=== PATIENT | female | born 1985 | race Caucasian/White ===

== ENCOUNTER 2016-12-28 19:31 | Emergency (ER) | payer BC, OTHER ==
[2016-12-28 19:35] VITALS: RESP 16; TEMP 98.2
--- NOTE | 2016-12-28 20:27 | ED ---
Female Urogenital HPI - General Chief complaint: Vaginal Bleeding Stated complaint: "few months " spotting Time Seen by Provider: 12/28/16 20:14 Source: patient, family, RN notes reviewed Mode of arrival: ambulatory Limitations: no limitations - History of Present Illness Initial comments: 31-year-old female presented emergency department for vaginal bleeding early . Patient states she is A0 and currently. Weeks . Patient states her ATMOSPHERIC SCIENTIST is Dr. St. She has an appointment coming up next week. Patient states that she started having some vaginal bleeding and spotting yesterday. She states usually when she goes the bathroom. She states it is bright red blood denies any clots. Patient denies any dysuria hematuria. Patient is not currently taking her vitamin. She did admit to having bleeding during her prior which is worse than this bleeding. She believes that she is O+ blood type. She has never received Procan. Denies any nausea vomiting - Related Data Home Medications Medication Instructions Recorded Confirmed No Known Home Medications [No 12/28/16 12/28/16 Known Home Medications] Allergies Allergy/AdvReac Type Severity Reaction Status Date / Time codeine Allergy Rash/Hives Verified 12/28/16 20:01 hydrocodone bitartrate Allergy Rash/Hives Verified 12/28/16 20:01 [From Vicodin] sulfamethoxazole Allergy Rash/Hives Verified 12/28/16 20:01 [From Bactrim] tramadol Allergy Rash/Hives Verified 12/28/16 20:01 trimethoprim [From Bactrim] Allergy Rash/Hives Verified 12/28/16 20:01 Review of Systems ROS Statement: Those systems with pertinent positive or pertinent negative responses have been documented in the HPI. ROS Other: All systems not noted in ROS Statement are negative. Past Medical History Past Medical History: No Reported History History of Any Multi-Drug Resistant Organisms: None Reported Past Surgical History: Appendectomy, Section Past Anesthesia/Blood Transfusion Reactions: Postoperative Nausea & Vomiting ( PONV) Past Psychological History: No Psychological Hx Reported Smoking Status: Current every day smoker Past Alcohol Use History: None Reported, Occasional Past Drug Use History: None Reported - Past Family History Mother Family Medical History: No Reported History General Exam Limitations: no limitations General appearance: alert, in no apparent distress Respiratory exam: Present: normal lung sounds bilaterally. Absent: respiratory distress, wheezes, rales, rhonchi, stridor Cardiovascular Exam: Present: regular rate, normal rhythm, normal heart sounds. Absent: systolic murmur, diastolic murmur, rubs, gallop, clicks GI/Abdominal exam: Present: soft, normal bowel sounds. Absent: distended, tenderness, guarding, rebound, rigid Back exam: Absent: CVA tenderness (R), CVA tenderness (L) Neurological exam: Present: alert, oriented X3, CN II-XII intact Skin exam: Present: warm, dry, intact, normal color. Absent: rash Course Vital Signs 12/28/16 12/28/16 19:33 22:02 Temperature 98.2 F 98.2 F Pulse Rate 73 61 Respiratory 16 16 Rate Blood Pressure 123/67 118/60 O2 Sat by Pulse 100 100 Oximetry Medical Decision Making - Medical Decision Making 31-year-old female presented for vaginal bleeding in early . Ultrasound does show viable IUP 6 weeks and 2 days with a heart rate 121. Heart rate is concerning as it is a lower heart rate. Patient will follow-up with her ATMOSPHERIC SCIENTIST next week. Patient advised to refrain from any physical activity that it's strenuous and advised not to have any sexual intercourse. - Lab Data Lab Results 12/28/16 12/28/16 12/28/16 Range/Units 20:40 20:40 20:40 HCG, Quant 5016.7 mIU/mL Urine Color Light Yellow Urine Appearance Clear (Clear) Urine pH 6.5 (5.0-8.0) Ur Specific [place] 1.008 (1.001-1.035) Urine Protein Negative (Negative) Urine Glucose (UA) Negative (Negative) Urine Ketones Negative (Negative) Urine Blood Moderate H (Negative) Urine Nitrite Negative (Negative) Urine Bilirubin Negative (Negative) Urine Urobilinogen <2.0 (<2.0) mg/dL Ur Leukocyte Esterase Negative (Negative) Urine RBC 5 (0-5) /hpf Urine WBC 1 (0-5) /hpf Blood Type O Positive Blood Type Recheck No Disposition Clinical Impression: Vaginal bleeding in , Threatened miscarriage Disposition: HOME SELF-CARE Condition: Stable Instructions: Threatened Miscarriage (ED) Additional Instructions: Please return to the Emergency Department if symptoms worsen or any other concerns. Referrals: None,Stated [Primary Care Provider] - 1-2 days Time of Disposition: 22:16
[2016-12-28 20:53] LABS: Appearance,Urine Clear (Clear); Bilirubin,Urine Negative (Negative); Glucose,Urine (UA) Negative (Negative); Ketones,Urine Negative (Negative); Leukocyte Esterase,Urine Negative (Negative); Nitrite,Urine Negative (Negative); PH, Urine 6.5 (5.0-8.0); Particle Count 1150; Protein,Urine Negative (Negative); RBC,Urine 5 /hpf (0-5); Specific Gravity,Urine 1.008 (1.001-1.035); UA Billing (MACRO vs. MICRO) MICRO; Urobilinogen,Urine <2.0 mg/dL (<2.0); WBC,Urine 1 /hpf (0-5)
--- NOTE | 2016-12-28 22:01 | US ---
EXAMINATION TYPE: US OB <=14 wks transvag DATE OF EXAM: 12/28/2016 COMPARISON: NONE CLINICAL HISTORY: Spotting. EXAM PERFORMED: Transabdominal (TA) EXAM MEASUREMENTS: GESTATIONAL AGE / DATING Physician Established: not yet established Dates by LMP: unknown Dates by First Scan: 1st scan today Dates by Current Scan for: (6 weeks/2 days) EDC: 08/21/16 MATERNAL ANATOMY Uterus: 7.0 x 3.4 x 5.1cm Right Ovary: 2.9 x 1.9 x 2.3cm Left Ovary: 2.5 x 1.7 x 1.7cm Post CDS / Adnexa: wnl Presence of free fluid: no Presence of subchorionic bleed: no GESTATION / SURVEY CRL: 0.5 (6 weeks/2 days) Yolk Sac (normal less than 6mm): 2mm Heart Rate: 121 bpm Rhythm: Normal IUP: Viable IUP Date of LMP: unknown Beta HcG (if available): not available Viable IUP dates above. IMPRESSION: The ultrasound gestational age is 6 weeks 2 days. I see no complicating process. The DIAMANTE is 08/21/2017 .
[2016-12-28 22:03] VITALS: BP 118/60; PULSE 61
== END 2016-12-28 22:24 | disposition home or self-care (01) ==
LOC: EC 19:31
DX: O20.0 Threatened abortion (principal); O99.331 Smoking (tobacco) complicating pregnancy, first trimester; F17.200 Nicotine dependence, unspecified, uncomplicated; Z3A.01 Less than 8 weeks gestation of pregnancy; Z88.5 Allergy status to narcotic agent; Z88.2 Allergy status to sulfonamides; Z88.6 Allergy status to analgesic agent
CPT/HCPCS: 36415; 76801; 76817; 81001; 84702; 86900; 86901; 99284

== ENCOUNTER 2016-12-31 19:56 | Emergency (ER) | payer BC, OTHER ==
[2016-12-31 20:10] VITALS: RESP 18
--- NOTE | 2016-12-31 20:48 | ED ---
Female Urogenital HPI - General Chief complaint: Vaginal Bleeding Stated complaint: 6 weeks / cramping/bleeding Time Seen by Provider: 12/31/16 20:35 Source: patient, RN notes reviewed Mode of arrival: wheelchair Limitations: no limitations - History of Present Illness Initial comments: This a 31-year-old female presents emergency Department chief complaint vaginal bleeding. Patient states that she was seen here 3 days ago and had a confirmed IUP 6 weeks and 2 days. Patient states bleeding but states it's got worse today this afternoon. She states that she did not do anything differently. She states she is passing some clots called her on-call OB group and states that they advised her to come in. Patient states she does have some mild cramping. Patient denies any fever, chills, nausea, vomiting, dysuria hematuria. Patient is A0. Patient states she did have large amount of bleeding with her prior . Last Menstrual Period: 11/19/16 - Related Data Home Medications Medication Instructions Recorded Confirmed Ywb-Whjx-Wmlqd Acid 1 cap PO HS 12/31/16 12/31/16 [-U Capsule (formulary)] Allergies Allergy/AdvReac Type Severity Reaction Status Date / Time sulfamethoxazole Allergy Rash/Hives Verified 12/31/16 20:11 [From Bactrim] trimethoprim [From Bactrim] Allergy Rash/Hives Verified 12/31/16 20:11 codeine AdvReac Rapid Verified 12/31/16 20:51 Heart Rate hydrocodone bitartrate AdvReac Rapid Verified 12/31/16 20:51 [From Vicodin] Heart Rate tramadol AdvReac Vertigo Verified 12/31/16 20:51 Review of Systems ROS Statement: Those systems with pertinent positive or pertinent negative responses have been documented in the HPI. ROS Other: All systems not noted in ROS Statement are negative. Past Medical History Past Medical History: No Reported History History of Any Multi-Drug Resistant Organisms: None Reported Past Surgical History: Appendectomy, Section Past Anesthesia/Blood Transfusion Reactions: Postoperative Nausea & Vomiting ( PONV) Past Psychological History: No Psychological Hx Reported Smoking Status: Current every day smoker Past Alcohol Use History: None Reported Past Drug Use History: None Reported - Past Family History Mother Family Medical History: No Reported History General Exam Limitations: no limitations General appearance: alert, in no apparent distress Neck exam: Present: normal inspection. Absent: tenderness, meningismus, lymphadenopathy Respiratory exam: Present: normal lung sounds bilaterally. Absent: respiratory distress, wheezes, rales, rhonchi, stridor Cardiovascular Exam: Present: regular rate, normal rhythm, normal heart sounds. Absent: systolic murmur, diastolic murmur, rubs, gallop, clicks GI/Abdominal exam: Present: soft, tenderness (mild suprapubic), normal bowel sounds. Absent: distended, guarding, rebound, rigid Back exam: Absent: CVA tenderness (R), CVA tenderness (L) Skin exam: Present: warm, dry, intact, normal color. Absent: rash Course Vital Signs 12/31/16 20:08 Temperature 98.1 F Pulse Rate 94 Respiratory 18 Rate Blood Pressure 122/71 O2 Sat by Pulse 99 Oximetry Medical Decision Making - Medical Decision Making 31-year-old female presented emergency department for vaginal bleeding early . Patient HCG went up from 5000 - 5500. Patient continues to have bleeding. Patient does not require broke him. Patient already an ultrasound 3 days ago confirmed IUP. Patient follow-up with OB tomorrow at her scheduled appointment. - Lab Data Result diagrams: 12/31/16 20:48 Lab Results 12/31/16 12/31/16 Range/Units 20:48 20:48 WBC 7.1 (3.8-10.6) k/uL RBC 3.95 (3.80-5.40) m/uL Hgb 12.3 (11.4-16.0) gm/dL Hct 35.7 (34.0-46.0) % MCV 90.5 (80.0-100.0) fL MCH 31.1 (25.0-35.0) pg MCHC 34.4 (31.0-37.0) g/dL RDW 13.9 (11.5-15.5) % Plt Count 224 (150-450) k/uL Neutrophils % 51 % Lymphocytes % 35 % Monocytes % 8 % Eosinophils % 3 % Basophils % 1 % Neutrophils # 3.6 (1.3-7.7) k/uL Lymphocytes # 2.5 (1.0-4.8) k/uL Monocytes # 0.6 (0-1.0) k/uL Eosinophils # 0.2 (0-0.7) k/uL Basophils # 0.1 (0-0.2) k/uL HCG, Quant 5515.4 mIU/mL Disposition Clinical Impression: Threatened miscarriage Disposition: HOME SELF-CARE Condition: Stable Instructions: Threatened Miscarriage (ED) Additional Instructions: Please return to the Emergency Department if symptoms worsen or any other concerns. Referrals: None,Stated [Primary Care Provider] - 1-2 days Time of Disposition: 21:49
[2016-12-31 21:11] LABS: Basophils # (A) 0.1 k/uL (0-0.2); Basophils % (A) 1 %; CH 31.2; CHCM 34.6; Eosinophils # (A) 0.2 k/uL (0-0.7); Eosinophils % (A) 3 %; HCT 35.7 % (34.0-46.0); HDW 2.27; HGB 12.3 gm/dL (11.4-16.0); Luc # (Auto) 0.15; Luc % (Auto) 2; Lymphocytes # (A) 2.5 k/uL (1.0-4.8); Lymphocytes % (A) 35 %; MCH 31.1 pg (25.0-35.0); MCHC 34.4 g/dL (31.0-37.0); MCV 90.5 fL (80.0-100.0); Mean Platelet Volume 7.4; Monocytes # (A) 0.6 k/uL (0-1.0); Monocytes % (A) 8 %; Neutrophils # (A) 3.6 k/uL (1.3-7.7); Neutrophils % (A) 51 %; RBC 3.95 m/uL (3.80-5.40); RDW 13.9 % (11.5-15.5); WBC 7.1 k/uL (3.8-10.6); WBC (Perox) 7.21
[2016-12-31 22:05] VITALS: BP 143/78; PULSE 71; TEMP 97.6
== END 2016-12-31 22:04 | disposition home or self-care (01) ==
LOC: EC 19:56
DX: O20.0 Threatened abortion (principal); O99.331 Smoking (tobacco) complicating pregnancy, first trimester; F17.200 Nicotine dependence, unspecified, uncomplicated; Z90.49 Acquired absence of other specified parts of digestive tract; Z88.2 Allergy status to sulfonamides; Z88.5 Allergy status to narcotic agent; Z88.6 Allergy status to analgesic agent; Z98.890 Other specified postprocedural states; Z3A.01 Less than 8 weeks gestation of pregnancy; Z79.899 Other long term (current) drug therapy
CPT/HCPCS: 36415; 84702; 85025; 99284

== ENCOUNTER 2017-01-01 16:00 | Day surgery (SDC) | payer BC, OTHER ==
[~2017-01-01 16:00] MED LIST: Pre Op ABX Message 1 EACH MISC MISCELLANE ONE
--- NOTE | 2017-01-01 16:00 | P.HPOB ---
History of Present Illness H&P Date: 01/01/17 Chief Complaint: Incomplete . This patient is a pleasant 31 yr female estimated gestational age 6 weeks who presented to the ER with complaints of bleeding and . She was found to have a viable 6 week , but began bleeding heavy last evening. Repeat ultrasound here demonstrates a non-viable , no longer a pole, but with retained tissue. Patient is currently bleeding and presents for D&C for treatment. Review of Systems Constitutional: Denies chills, Denies fever Cardiovascular: Denies chest pain, Denies shortness of breath Respiratory: Denies cough Gastrointestinal: Denies abdominal pain, Denies diarrhea, Denies nausea, Denies vomiting Genitourinary: Reports Menstruation: Reports as per HPI Musculoskeletal: Denies myalgias Past Medical History Past Medical History: No Reported History History of Any Multi-Drug Resistant Organisms: None Reported Past Surgical History: Appendectomy, Section Past Anesthesia/Blood Transfusion Reactions: Postoperative Nausea & Vomiting ( PONV) Past Psychological History: No Psychological Hx Reported Smoking Status: Current every day smoker Past Alcohol Use History: None Reported Past Drug Use History: None Reported - Past Family History Mother Family Medical History: No Reported History Medications and Allergies Home Medications Medication Instructions Recorded Confirmed Type Rtj-Eznl-Daacn Acid 1 cap PO HS 12/31/16 12/31/16 History [-U Capsule (formulary)] Allergies Allergy/AdvReac Type Severity Reaction Status Date / Time sulfamethoxazole Allergy Rash/Hives Verified 12/31/16 20:11 [From Bactrim] trimethoprim [From Bactrim] Allergy Rash/Hives Verified 12/31/16 20:11 codeine AdvReac Rapid Verified 12/31/16 20:51 Heart Rate hydrocodone bitartrate AdvReac Rapid Verified 12/31/16 20:51 [From Vicodin] Heart Rate tramadol AdvReac Vertigo Verified 12/31/16 20:51 Exam - OBG Physical Exam Abdomen: bowel sounds normal, no diffuse tenderness, no bruit present, no guarding noted, no hepatomegaly, no splenomegaly, no mass Vulva: both: normal Vagina: no discharge (Bleeding) Cervix: no lesion (Dilated finger tip.), no discharge Results Ultrasound as above. Blood type is RH positive. Assessment and Plan (1) Incomplete Narrative/Plan: This is a pleasant 31 yr female 6 weeks gestation with incomplete presenting for suction D&C. I discussed this surgery and risks with the patient including the risks of infection, bleeding, possible uterine perforation. All of the patients questions were answered and a written consent obtained. Status: Acute
[2017-01-01] MEDS ORDERED: DEXAMETHASONE SOD PHOSPHATE 10 MG/ML 1 ML VIAL IV ONE (16:16)
[2017-01-01] MEDS ORDERED: ONDANSETRON 4 MG/2 ML VIAL IVP ONE (16:16)
[2017-01-01] MEDS ORDERED: HYDROmorphone 1 MG/ML 1 ML SYRINGE IVP PRN (16:16)
[2017-01-01] MEDS ORDERED: LACTATED RINGERS 1,000 ML IV SCH (16:30)
[2017-01-01] MEDS ORDERED: LIDOCAINE 1% 20 ML VIAL (10MG/ML) FOR IV START INTRADERMA ONE (16:40)
[2017-01-01] MEDS ORDERED: KETOROLAC 30 MG/ML 1 ML VIAL ONE (16:50)
[2017-01-01] MEDS ORDERED: PROPOFOL 10 MG/ML 20 ML VIAL IV ONE (16:50)
[2017-01-01] MEDS ORDERED: fentaNYL (PF) 50 MCG/ML 2 ML AMP ONE (16:50)
[2017-01-01] MEDS ORDERED: LIDOCAINE 1% INJ 10MG/ML (20 ML MDV) ONE (16:50)
[2017-01-01] MEDS ORDERED: LACTATED RINGERS 1,000 ML IV ONE ×2 (16:50→17:44)
[2017-01-01] MEDS ORDERED: MIDAZOLAM 2 MG/2 ML VIAL ONE (16:50)
--- NOTE | 2017-01-01 17:17 | P.OP ---
Date of Procedure: 01/01/17 Preoperative Diagnosis: Incomplete Postoperative Diagnosis: Same Procedure(s) Performed: Suction D&C Implants: Anesthesia: MAC Surgeon: Kobe St Estimated Blood Loss (ml): 25 Urine output (ml): 10 Pathology: other Condition: stable Disposition: PACU (Uterine contents) Indications for Procedure: Please see dictated H&P for intimate details of this patient's admission. Brief summary this is a pleasant 31-year-old 2 para 1 female estimated gestational age 6 weeks who presents to my office today with complaints of bleeding. Patient was found to have an incomplete and now presents for suction D&C for treatment. Patient does understand the surgery and risks including risks of infection, bleeding, possible uterine perforation. All the patient's questions are answered written consent is obtained. Operative Findings: Uterine contents were consistent with degenerated products of conception. Description of Procedure: This patient is taken to the operating room where she is laid in the supine position. She subsequently undergoes general mask anesthesia without incident. With adequate level of anesthesia she's placed in dorsal lithotomy position. She has a vaginal perineal prep and drape. Examination under anesthesia shows a mid position uterus slightly enlarged. I drain her bladder for 10 mL of clear urine. Weighted speculum was placed in the posterior vagina and the anterior lip of the cervix is grasped with an Allis clamp. The cervix is easily dilated to allow a 9 curved suction curette into the uterine cavity. Suction is applied and a generous amount of tissue is removed.'s does appear to be degenerated tissue. Multiple passes are made to no further tissue was noted. A gentle but thorough 4 quadrant curettage is then done and again no further tissue was noted. A final pass of the suction curet is done. There is minimal bleeding. This point the weighted speculum and Allis clamp are removed. All counts are correct 3. There are no complications. Patient was taken to the recovery room in satisfactory condition.
[2017-01-01 17:22] VITALS: TEMP 97.1
[2017-01-01 18:03] VITALS: RESP 18
[2017-01-01 18:51] VITALS: BP 115/66; PULSE 71
== END 2017-01-01 18:47 | disposition home or self-care (01) ==
LOC: OR 16:00
PROVIDERS: ATTEND Obstetrics & Gynecology
DX: O03.4 Incomplete spontaneous abortion without complication (principal); F17.200 Nicotine dependence, unspecified, uncomplicated; Z88.5 Allergy status to narcotic agent; Z88.2 Allergy status to sulfonamides; Z88.8 Allergy status to other drugs, medicaments and biological substances
CPT/HCPCS: 88305; 59812; J2250; J1100; J2405; J2001; J3010; J1885; J2704

== ENCOUNTER → 2018-01-22 | Outpatient (CLI) | payer OTHER ==
[2018-01-22 15:08] LABS: MCH 30.1 pg (25.0-35.0); MCHC 33.4 g/dL (31.0-37.0); MCV 90.2 fL (80.0-100.0); Mean Platelet Volume 7.4; Platelet Count 214 k/uL (150-450); RBC 3.66 m/uL (3.80-5.40); RDW 13.9 % (11.5-15.5); WBC 7.6 k/uL (3.8-10.6)
[2018-01-22 15:29] LABS: Glucose 101 mg/dL (74-99)
--- NOTE | 2018-01-22 15:54 | US ---
EXAMINATION TYPE: Transabdominal DATE OF EXAM: 09/24/17 COMPARISON: NONE CLINICAL HISTORY: Z36 CONFIRM DATES. Previous miscarriage in the beginning of December, LMP unknown EXAM PERFORMED: Transvaginal (TV) and Transabdominal (TA) EXAM MEASUREMENTS: GESTATIONAL AGE / DATING Physician Established: Not yet established Dates by LMP: LMP unknown Dates by First Scan: No previous this is first scan Dates by Current Scan for: (7 weeks/2 days) EDC: 09/08/2018 MATERNAL ANATOMY Uterus: 6.7 x 4.7 x 6.2 cm Right Ovary: 3.0 x 1.1 x 2.0 cm Left Ovary: 2.8 x 2.8 x 3.1 cm Post CDS / Adnexa: wnl Presence of free fluid: No Presence of corpus luteal cyst: Yes, left ovary measuring 2.2 x 2.3 x 1.8 cm Presence of subchorionic bleed: Yes, to the left of the gestational sac GESTATION / SURVEY CRL: 1.12 cm (7 weeks/2 days) Yolk Sac (normal less than 6mm): 3 mm Heart Rate: 152 bpm Rhythm: Normal IUP: Viable IUP Date of LMP: Unsure Viable IUP with an DIAMANTE of 09/08/2018 by this exam . IMPRESSION: Single live intrauterine with a sonographic age of 7 weeks and 2 days with estimated date o f delivery of 09/08/2018. Small subchorionic hemorrhage is noted for which surveillance can be perform ed.
[2018-01-22 19:05] LABS: HIV AB P24 Non-Reactive (Non-Reactive); HIV P24 AG Non-Reactive (Non-Reactive)
[2018-01-23 07:02] LABS: Toxoplasma Antibody (IgG) <3.0 IU/mL (<7.2); Toxoplasma Antibody (IgM) <3.0 AU/mL (<8.0)
== END | disposition home or self-care (01) ==
LOC: RADUSWWP 14:08
PROVIDERS: ATTEND Obstetrics & Gynecology
DX: O20.8 Other hemorrhage in early pregnancy (principal); O26.811 Pregnancy related exhaustion and fatigue, first trimester; Z3A.01 Less than 8 weeks gestation of pregnancy
CPT/HCPCS: 36415; 76801; 76817; 82565; 82947; 85027; 86762; 86777; 86778; 86780; 86850; 86900; 86901; 87340; 87390

== ENCOUNTER → 2018-05-28 | Outpatient (CLI) | payer OTHER | END | disposition home or self-care (01) | LOC: LABWHC1 07:59 | PROVIDERS: ATTEND Obstetrics & Gynecology | DX: Z34.82 Encounter for supervision of other normal pregnancy, second trimester (principal); Z3A.00 Weeks of gestation of pregnancy not specified | CPT/HCPCS: 36415; 82950 ==

== ENCOUNTER → 2018-06-03 | Outpatient (CLI) | payer OTHER ==
[2018-06-03 12:17] LABS: Glucose 3 Hour, Gest 123 mg/dL
== END | disposition home or self-care (01) ==
LOC: LABWHC1 07:59
PROVIDERS: ATTEND Obstetrics & Gynecology
DX: O24.419 Gestational diabetes mellitus in pregnancy, unspecified control (principal); Z3A.00 Weeks of gestation of pregnancy not specified
CPT/HCPCS: 36415; 82951; 82952

== ENCOUNTER → 2018-06-27 | Outpatient (CLI) | payer OTHER | END | disposition home or self-care (01) | LOC: LABWHC1 10:24 | PROVIDERS: ATTEND Obstetrics & Gynecology Maternal & Fetal Medicine | DX: O24.410 Gestational diabetes mellitus in pregnancy, diet controlled (principal) | CPT/HCPCS: 36415; 82947; 83036 ==

== ENCOUNTER 2018-08-06 18:34 | Outpatient (CLI) | payer OTHER ==
[2018-08-06 19:20] VITALS: BP 130/69; PULSE 80; RESP 16; TEMP 97.2
[2018-08-06] MEDS ORDERED: LACTATED RINGERS 1,000 ML IV ONE (19:45)
--- NOTE | 2018-08-17 12:40 | P.MSEPDOC ---
Presenting Problems - Arrival Data Date of Arrival on Unit: 08/06/18 Time of Arrival on Unit: 18:36 Mode of Transport: Wheelchair - Complaint OB-Reason for Admission/Chief Complaint: Possible Onset of Labor Comment: cayden HANKS ever 5 min since 1630 Medical History - Information : 3 Para: 1 Term: 1 : 0 Abortions: Spontaneous or Elective: 1 Number of Living Children: 1 - Gestational Age Gestational Age by DIAMANTE (wks/days): 35 Weeks and 5 Days - History Complications: GDM, Prior Review of Systems - Review of Systems Constitutional: No problems Breast: No problems ENT: No problems Cardiovascular: No problems Respiratory: No problems Gastrointestinal: No problems Genitourinary: No problems Musculoskeletal: No problems Neurological: No problems Skin: No problems Vital Signs - Temperature Temperature: 97.2 F Temperature Source: Temporal Artery Scan - Pulse Right Brachial Pulse Rate: 80 Pulse Assessment Method: Automatic Cuff - Respirations Respiratory Rate: 16 Oxygen Delivery Method: Room Air O2 Sat by Pulse Oximetry: 99 - Blood Pressure Right Arm Sitting Blood Pressure: 130/69 Blood Pressure Mean: 89 Blood Pressure Source: Automatic Cuff Medical Screen Scoring (Pre) - Cervical Exam Dilation: 0 cm = 0 Membranes: Intact - Uterine Contractions Frequency: Scheduled / = 6 Duration: > 40 seconds = 2 - Maternal Vital Signs Maternal Temperature: N/A Maternal Blood Pressure: N/A Signs of Preeclampsia: N/A Maternal Respirations: N/A - Pain Assessment Pain Location and Character: Lower, Abdomen Pain Scale Used: Numeric (1 - 10) Pain Intensity: 8 Pain Description: *Acute, Tightness Pain Radiation Location: pelvis Pain Frequency: Intermittent Pain Duration: 2 Pain Duration Units: Hours Pain Behavior: Facial Grimacing Pain Aggravating Factors: Contractions - Maternal Trauma Maternal Trauma: N/A - Assessment Baseline FHR: 125 Heart Rate - NICHD Category: Category I (Normal) = 0 NST: Reactive Position: N/A Station: N/A - Total Score Total Score (Pre): 8 - Level of Risk Level of Risk: Medium (6-9) Medical Screen Scoring (Post) - Uterine Contractions Frequency: < 36 weeks = 6 Duration: > 40 seconds = 2 Intensity: N/A - Maternal Vital Signs Maternal Temperature: N/A Maternal Blood Pressure: N/A Signs of Preeclampsia: N/A Maternal Respirations: N/A - Pain Assessment Pain Location and Character: Lower, Abdomen Pain Scale Used: Numeric (1 - 10) Pain Intensity: 6 Pain Description: *Acute, Cramping Pain Frequency: Intermittent Pain Duration Units: Minutes Pain Behavior: Facial Grimacing Pain Aggravating Factors: Contractions - Assessment Heart Rate: 135 Heart Rate - NICHD Category: Category I (Normal) = 0 NST: Reactive Position: N/A Station: N/A - Total Score Total Score (Post): 8 - Post Treatment Level of Risk Post Treatment Level of Risk: Medium (6-9) Physician Notification (Post) - Physician Notified Physician Notified Date: 08/06/18 Physician Notified Time: 20:22 Physician/Practitioner Notified:: Dr. Rodriguez Spoke With: Dr. Rodriguez New Order Received: Yes - Notification Comment Comment: Dr. Rodriguez called and given report on pt in tr. No change in vag exam. contractions 2-6 minutes. Orders recieved that if pt wishes to be monitoring another few. hours she can stay or pt may be d/c to home. Disposition - Disposition OB Disposition: Discharge to home Discharge Date: 08/06/18 Discharge Time: 20:45 I agree with the RN Medical Screening Exam: Yes Risk & Benefit of care provided described in d/c instruction: Yes Diagnosis: FALSE LABOR BEFORE 37 COMPLETED WEEKS OF GEST, THIRD TRI
== END 2018-08-06 20:45 | disposition home or self-care (01) ==
LOC: FBPOP 18:34
PROVIDERS: ATTEND Obstetrics & Gynecology
DX: O47.03 False labor before 37 completed weeks of gestation, third trimester (principal); Z3A.35 35 weeks gestation of pregnancy
CPT/HCPCS: 59025; 96360; G0463; 99214

== ENCOUNTER 2018-08-30 10:44 | Outpatient (CLI) | payer OTHER ==
--- NOTE | 2018-09-30 10:29 | P.MSEPDOC ---
Presenting Problems - Arrival Data Date of Arrival on Unit: 08/30/18 Time of Arrival on Unit: 10:44 Mode of Transport: Wheelchair - Complaint OB-Reason for Admission/Chief Complaint: NST Medical History - Information : 3 Para: 2 Term: 2 : 0 Abortions: Spontaneous or Elective: 0 Number of Living Children: 2 - Gestational Age Gestational Age by DIAMANTE (wks/days): 39 Weeks and 1 Days - History Complications: GDM Review of Systems - Review of Systems Constitutional: No problems Breast: No problems ENT: No problems Cardiovascular: No problems Respiratory: No problems Gastrointestinal: No problems Genitourinary: No problems Musculoskeletal: No problems Neurological: No problems Skin: No problems Medical Screen Scoring (Pre) - Cervical Exam Dilation: Exam Deferred Effacement: Exam Deferred - Uterine Contractions Frequency: > 5 minutes apart = 1 Duration: N/A Intensity: N/A - Maternal Vital Signs Maternal Temperature: N/A Maternal Blood Pressure: N/A Signs of Preeclampsia: N/A Maternal Respirations: N/A - Maternal Trauma Maternal Trauma: N/A - Assessment Baseline FHR: 145 Heart Rate - NICHD Category: Category I (Normal) = 0 - Total Score Total Score (Pre): 1 - Level of Risk Level of Risk: Low (0-5) Medical Screen Scoring (Post) - Cervical Exam Dilation: Exam Deferred Effacement: Exam Deferred - Uterine Contractions Frequency: > 5 minutes apart = 1 Duration: N/A Intensity: N/A - Maternal Vital Signs Maternal Temperature: N/A Maternal Blood Pressure: N/A Signs of Preeclampsia: N/A Maternal Respirations: N/A - Pain Assessment Pain Scale Used: Numeric (1 - 10) Pain Intensity: 0 - Maternal Trauma Maternal Trauma: N/A - Assessment Heart Rate: 145 Heart Rate - NICHD Category: Category I (Normal) = 0 NST: Reactive Position: N/A Station: N/A - Total Score Total Score (Post): 1 - Post Treatment Level of Risk Post Treatment Level of Risk: N/A Physician Notification (Post) - Physician Notified Physician Notified Date: 08/30/18 Physician Notified Time: 11:10 Physician/Practitioner Notified:: mi Spoke With: mi New Order Received: Yes - Notification Comment Comment: reported pt visit for nst, reported reactive. pt may be discharged Disposition - Disposition OB Disposition: Discharge to home Discharge Date: 08/30/18 Discharge Time: 11:25 I agree with the RN Medical Screening Exam: Yes Risk & Benefit of care provided described in d/c instruction: Yes Diagnosis: RELATED CONDITIONS, UNSPECIFIED, THIRD TRIMESTER
== END 2018-08-30 11:19 | disposition home or self-care (01) ==
LOC: FBPOP 10:44
PROVIDERS: ATTEND Obstetrics & Gynecology
DX: O26.93 Pregnancy related conditions, unspecified, third trimester (principal); Z3A.39 39 weeks gestation of pregnancy
CPT/HCPCS: 59025; G0463; 99213

== ENCOUNTER 2018-09-02 05:42 | Inpatient (IN) | payer OTHER ==
[2018-09-01 14:10] VITALS: BMI 30.4
--- NOTE | 2018-09-01 18:29 | P.HPOB ---
History of Present Illness H&P Date: 09/01/18 Chief Complaint: Gestational diabetes, repeat and tubal ligation This patient is a pleasant 32-year-old 3 para 1 female estimated date of confinement 09/05/2018 estimated gestational age 39-4/7 weeks who presents to labor and delivery for repeat section and tubal ligation. Patient's care has been complicated by insulin-dependent gestational diabetes has been managed by maternal medicine. She did have some control issues earlier but has most recently get her sugars under better control. otherwise has been uncomplicated, with the exception of tobacco use. Patient had a previous section for breech and as requested repeat section at this time. She is also requesting permanent sterilization. Review of Systems Gastrointestinal: Reports heartburn Genitourinary: Reports Menstruation: Reports amenorrhea Past Medical History Past Medical History: No Reported History Additional Past Medical History / Comment(s): gestational diabetes History of Any Multi-Drug Resistant Organisms: None Reported Past Surgical History: Appendectomy, Section Additional Past Surgical History / Comment(s): D&C Past Anesthesia/Blood Transfusion Reactions: Motion Sickness, Postoperative Nausea & Vomiting (PONV) Additional Past Anesthesia/Blood Transfusion Reaction / Comment(s): no hx blood transfusion Past Psychological History: No Psychological Hx Reported Smoking Status: Light tobacco smoker - Past Family History Mother Family Medical History: No Reported History Medications and Allergies Home Medications Medication Instructions Recorded Confirmed Type Mad-Ocel-Uxdtg Acid 1 cap PO HS 12/31/16 09/01/18 History [-U Capsule (formulary)] Insulin Glargine,Hum.rec.anlog 25 unit SQ HS 09/01/18 09/01/18 History [Basaglar Kwikpen U-100] Insulin Lispro [Admelog] 5 unit SQ AC-LUNCH 09/01/18 09/01/18 History Insulin Lispro [Admelog] 12 unit SQ AC-BRKFST 09/01/18 09/01/18 History Insulin Lispro [Admelog] 12 unit SQ AC-SUPPER 09/01/18 09/01/18 History Allergies Allergy/AdvReac Type Severity Reaction Status Date / Time sulfamethoxazole Allergy Rash/Hives Verified 09/01/18 14:01 [From Bactrim] trimethoprim [From Bactrim] Allergy Rash/Hives Verified 09/01/18 14:01 codeine AdvReac Rapid Verified 09/01/18 14:01 Heart Rate hydrocodone bitartrate AdvReac Rapid Verified 09/01/18 14:01 [From Vicodin] Heart Rate tramadol AdvReac Vertigo Verified 09/01/18 14:01 Exam Intake and Output 09/01/18 09/01/18 09/01/18 06:59 14:59 22:59 Other: Weight 81.647 kg - OBG Physical Exam Abdomen: bowel sounds normal, no diffuse tenderness, no bruit present, no guarding noted, no hepatomegaly, no splenomegaly, no mass Vulva: both: normal Vagina: normal moisture, no discharge Cervix: no lesion (Cervix in the office is closed.), no discharge Uterus: enlarged (Fundal height is 39 cm) Results blood work shows she is O positive, rubella immune, RPR nonreactive, hepatitis B negative, HIV is nonreactive, Glucola was 170 with 3 abnormal 3 hour values, ultrasounds have shown normal growth, group B strep was negative, Assessment and Plan Assessment: This is a pleasant 32-year-old 3 para 1 female 39-4/7 weeks gestation who is admitted to labor and delivery for elective repeat section and also requesting permanent sterilization. Patient also has insulin controlled gestational diabetes. Plan is repeat low transverse section and bilateral partial salpingectomy. Patient I discussed the surgery and risks. Patient understands a tubal ligation is considered permanent, however there is a failure rate of approximately 5 or less per thousand procedures done. Patient also understands that surgery itself has risks including risks of infection, bleeding, possible injury bowel, bladder, vessels, and/or other organs. She understands risk of DVT and pulmonary embolism. All the patient's questions are answered and a written consent is obtained. (1) 39 weeks gestation of Status: Acute Code(s): Z3A.39 - 39 WEEKS GESTATION OF SNOMED Code(s): 79207741 (2) Previous delivery affecting Status: Acute Code(s): O34.219 - MATERNAL CARE FOR UNSP TYPE SCAR FROM PREVIOUS DEL SNOMED Code(s): 718382734 (3) Family planning Status: Acute Code(s): Z30.09 - ENCOUNTER FOR OTH GENERAL CNSL AND ADVICE ON CONTRACEPTION SNOMED Code(s): 468535287 (4) Gestational diabetes mellitus (GDM) requiring insulin Status: Acute Code(s): O24.414 - GESTATIONAL DIABETES IN , INSULIN CONTROLLED SNOMED Code(s): 89893639
[2018-09-02] MEDS ORDERED: CITRIC ACID-SODIUM CITRATE 15 ML CUP PO ONE (06:02)
[2018-09-02] MEDS ORDERED: LACTATED RINGERS 1,000 ML IV ONE (06:02)
[2018-09-02] MEDS ORDERED: LACTATED RINGERS 1,000 ML IV SCH (06:02)
[2018-09-02 06:18] LABS: Glucose,Whole Blood 94 mg/dL (75-99)
[2018-09-02 06:23] LABS: Basophils % (A) 0 %; Eosinophils # (A) 0.1 k/uL (0-0.7); Eosinophils % (A) 2 %; HCT 29.1 % (34.0-46.0); HGB 9.7 gm/dL (11.4-16.0); Hypochromasia Moderate; Lymphocytes # (A) 1.5 k/uL (1.0-4.8); Lymphocytes % (A) 23 %; MCH 27.4 pg (25.0-35.0); MCHC 33.2 g/dL (31.0-37.0); MCV 82.4 fL (80.0-100.0); Mean Platelet Volume 7.4; Monocytes # (A) 0.6 k/uL (0-1.0); Monocytes % (A) 9 %; Neutrophils # (A) 4.1 k/uL (1.3-7.7); Neutrophils % (A) 63 %; Platelet Count 235 k/uL (150-450); Poikilocytosis Slight; RBC 3.53 m/uL (3.80-5.40); RDW 15.2 % (11.5-15.5); WBC 6.6 k/uL (3.8-10.6)
[2018-09-02] MEDS ORDERED: ceFAZolin IN SWFI 2 GM/20 ML SYRINGE IVP ONE (07:15)
[2018-09-02] MEDS ORDERED: LACTATED RINGERS 1,000 ML BAG IV ONE (07:44)
[2018-09-02] MEDS ORDERED: ONDANSETRON 4 MG/2 ML VIAL ONE (07:44)
[2018-09-02] MEDS ORDERED: KETOROLAC 30 MG/ML 1 ML VIAL ONE (07:44)
[2018-09-02] MEDS ORDERED: MORPHINE SULFATE (PF) 0.3 MG/0.3 ML SYR ONE (07:44)
[2018-09-02] MEDS ORDERED: OXYTOCIN 10 UNIT/ML 1 ML VIAL ONE (07:44)
[2018-09-02] MEDS ORDERED: NALBUPHINE 10 MG/ML (1 ML AMP) ONE (07:44)
[2018-09-02] MEDS ORDERED: KETOROLAC 30 MG/ML 1 ML VIAL IVP PRN ×2 (08:17→09:40)
[2018-09-02] MEDS ORDERED: diphenhydrAMINE 50 MG/ML 1 ML VIAL IVP PRN ×2 (08:17→09:40)
[2018-09-02] MEDS ORDERED: NALOXONE 0.4 MG/ML 1 ML VIAL IV PRN ×2 (08:17→09:40)
[2018-09-02] MEDS ORDERED: MORPHINE SULFATE 2 MG/ML SYRINGE IVP PRN (08:17)
--- NOTE | 2018-09-02 08:33 | P.OP ---
Date of Procedure: 09/02/18 Preoperative Diagnosis: #1: 39-4/7 week intrauterine . #2: Gestational diabetes. #3: Previous section desires repeat. #4: Multi parity desires permanent sterilization. Postoperative Diagnosis: Same Procedure(s) Performed: Repeat low transverse section and bilateral partial salpingectomy. Anesthesia: spinal Surgeon: [facility] Medical Territory Manager #1: Ina Adams Estimated Blood Loss (ml): 750 Pathology: other (Placenta and bilateral fallopian tube segments) Condition: stable Disposition: floor Indications for Procedure: Please see dictated H&P for intimate details of this patient's admission. In brief summary this is a pleasant 32-year-old 3 para 1 female 39-4/7 weeks gestation who is admitted to labor and delivery for repeat low transverse section and also requesting permanent sterilization. Patient I have discussed the surgery and risks including the fact that a tubal ligation is considered permanent, however there is a failure rate of approximately 5 or less per thousand procedures done. Patient also understands that surgery itself has risks including risks of infection, bleeding, possible injury to bowel, bladder, vessels, and/or other organs. She understands risk of DVT and pulmonary embolism. All the patient's questions are answered and a written consent is obtained. Operative Findings: This is a vigorous viable male Apgars 9 and 9 delivery time is 0800 hours. Infant appeared grossly normal. There is a nuchal cord 1. Description of Procedure: This patient has a Joseph catheter placed to straight drain. She is subsequently taken to the operating room where she sat up and spinal anesthetic is administered without incident. With an adequate level of anesthesia she has abdominal prep and drape. Scalpels and taken and a Pfannenstiel incision is made through the previous skin incision. A second scalpel is taken down to the fascia and the fascia scored with a knife. Fascial incision extended bilaterally using the Wang scissors. Fascia is dissected off the rectus muscles sharply. Rectus muscles are and the peritoneum identified and entered sharply. Peritoneal incision extended superior and inferior without difficulty. Bladder blade is then placed. Bladder peritoneum taken off the lower uterine segment sharply. Scalpels and taken low transverse uterine incision is then made. Using a hemostat I into the uterine cavity bluntly and there is loss of clear fluid. This is extended bluntly. The 's head is then gently guided through the incision with fundal pressure. Mouth and nares are bulb suctioned. There is a nuchal cord 1 which is reduced and loose. Then have deliver the rest this infant's body. This is a vigorous viable male Apgars are 9 and 9 delivery time is 0800 hours. Infant has spontaneous respirations and good cry and grossly appears normal. After delivery of the infant the umbilical cord is doubly clamped and cut appears to be trivascular. The placenta is then manually extracted intact. The uterus is then externalized and uterine incision demarcated with Jerez clamps. Some excess myometrial tissue is removed at this time. Incision is then closed using 0 Vicryl running locked fashion 2 layers. Excellent hemostasis is noted. At this time I turned my attention to the left fallopian tube and approximately 4 cm from the cornual insertion a small window is made to the mesial salpinx with Bovie cautery. Using 2-0 silk I doubly ligate a piece of the tube and approximately 1-2 cm segment of tube is excised and handed off to pathology. Cauterization done of the tubal ends and excellent hemostasis is noted similar technique is done on the right side with similar results. With this done excess fluid is removed from the abdomen and pelvis uterus placed back into the abdomen. Final check shows all to be hemostatic. The parietal peritoneum was then closed using 0 Vicryl running fashion. Rectus muscles reapproximated in 0 Vicryl interrupted fashion. Fascia is then closed using 0 PDS. Fascial incision is intact and hemostatic. Subcutaneous tissues and closed using a 3-0 Vicryl. Skin is and closed using brock. All counts are correct 3. There are no complications. Patient is then taken to her birthing suite in satisfactory condition.
[2018-09-02] MEDS ORDERED: SIMETHICONE 80 MG CHEWABLE PO PRN (09:40)
[2018-09-02] MEDS ORDERED: ACETAMINOPHEN TAB 325 MG TAB PO PRN (09:40)
[2018-09-02] MEDS ORDERED: diphenhydrAMINE 25 MG CAP PO PRN (09:40)
[2018-09-02] MEDS ORDERED: OXYTOCIN 20 UNITS/1000 ML NS 1,000 ML IV SCH (09:40)
[2018-09-02] MEDS ORDERED: ONDANSETRON 4 MG/2 ML VIAL IVP PRN (09:40)
[2018-09-02] MEDS ORDERED: Acetaminophen-Codeine 300-30mg TAB PO PRN ×2 (09:40)
[2018-09-02] MEDS ORDERED: ZOLPIDEM 5 MG TAB PO PRN (09:40)
[2018-09-02] MEDS ORDERED: METOCLOPRAMIDE 5 MG/ML 2 ML VIAL IVP PRN (09:40)
[2018-09-02] MEDS: SENNOSIDES-DOCUSATE SODIUM 1 EACH TAB PO SCH ×2 (10:38→22:34)
[2018-09-02] MEDS: LACTATED RINGERS 1,000 ML IV SCH ×2 (10:55→22:33)
[2018-09-02 15:29] LABS: Hemoglobin A1C 6.1 % (4.0-6.0)
[2018-09-02] MEDS: ONDANSETRON 4 MG/2 ML VIAL IVP PRN (19:44)
[2018-09-03] MEDS: ONDANSETRON 4 MG/2 ML VIAL IVP PRN (02:04)
[2018-09-03] MEDS: LACTATED RINGERS 1,000 ML IV SCH (02:04)
--- NOTE | 2018-09-03 05:54 | P.PNOBGPC ---
Subjective - Subjective Patient reports: Reports appetite normal, Reports voiding normally, Reports pain well controlled, Reports ambulating normally : doing well Objective - Vital Signs Latest vital signs: Vital Signs Temp Pulse Resp BP Pulse Ox 09/03/18 04:00 98.5 F 81 16 121/71 09/03/18 02:00 16 09/03/18 00:00 98.2 F 72 16 125/77 09/02/18 22:00 16 09/02/18 20:00 98.7 F 78 16 124/92 97 09/02/18 19:00 18 09/02/18 17:00 16 96 09/02/18 16:00 98.2 F 78 18 113/72 96 09/02/18 15:00 18 09/02/18 13:17 97 09/02/18 13:00 98.3 F 80 16 128/70 97 09/02/18 11:20 97.8 F 70 18 135/77 98 09/02/18 10:37 18 97 09/02/18 10:30 98.4 F 72 18 132/72 98 09/02/18 10:00 68 18 130/74 98 09/02/18 09:30 62 18 137/84 97 09/02/18 09:15 60 18 137/79 97 09/02/18 09:14 98 09/02/18 09:13 18 09/02/18 09:00 64 18 130/79 98 09/02/18 08:45 72 18 134/79 98 09/02/18 08:30 98.2 F 75 18 125/74 98 09/02/18 08:17 18 98 09/02/18 06:03 96.7 F L 81 16 138/65 Intake and Output 09/02/18 09/02/18 09/03/18 14:59 22:59 06:59 Intake Total 600 Output Total 2700 1500 Balance -2100 -1500 Intake: IV 600 Output: Urine 1200 1500 Straight 800 Estimated Blood Loss 1500 Other: # Bowel Movements 0 - Exam Lungs: bilateral: normal Chest: Normal S1, Normal S2 Extremities: Present: normal Abdomen: Present: normal appearance, soft. Absent: distention, tenderness Incision: Present: normal, dry, intact Uterus: Present: normal, firm - Labs Labs: Abnormal Lab Results - Last 24 Hours (Table) 03/12/19 03/12/19 Range/Units 06:08 06:08 RBC 3.53 L (3.80-5.40) m/uL Hgb 9.7 L (11.4-16.0) gm/dL Hct 29.1 L (34.0-46.0) % Hemoglobin A1c 6.1 H (4.0-6.0) % Assessment and Plan Assessment: Postoperative day #1. Patient is resting without complaints. Vital signs are stable she's afebrile. Uterus is firm nontender she's having normal lochia. Her incision is intact and dry. CBC is pending at this time. Plan today is to encourage ambulation, allow the patient to shower, continue regular diet, and we will check a CBC. Continue routine postoperative care. (1) 39 weeks gestation of Current Visit: No Status: Acute Code(s): Z3A.39 - 39 WEEKS GESTATION OF SNOMED Code(s): 63090526 (2) Previous delivery affecting Current Visit: No Status: Acute Code(s): O34.219 - MATERNAL CARE FOR UNSP TYPE SCAR FROM PREVIOUS DEL SNOMED Code(s): 515205712 (3) Family planning Current Visit: No Status: Acute Code(s): Z30.09 - ENCOUNTER FOR OTH GENERAL CNSL AND ADVICE ON CONTRACEPTION SNOMED Code(s): 424926915 (4) Gestational diabetes mellitus (GDM) requiring insulin Current Visit: No Status: Acute Code(s): O24.414 - GESTATIONAL DIABETES IN , INSULIN CONTROLLED SNOMED Code(s): 36440880
[2018-09-03] MEDS: IBUPROFEN 600 MG TAB PO PRN ×3 (08:12→23:04)
[2018-09-03] MEDS: SENNOSIDES-DOCUSATE SODIUM 1 EACH TAB PO SCH ×2 (08:12→20:12)
[2018-09-03 08:46] LABS: Basophils % (A) 0 %; Eosinophils % (A) 0 %; HCT 26.7 % (34.0-46.0); HGB 8.4 gm/dL (11.4-16.0); Hypochromasia Slight; Lymphocytes # (A) 1.1 k/uL (1.0-4.8); Lymphocytes % (A) 14 %; MCH 25.9 pg (25.0-35.0); MCHC 31.6 g/dL (31.0-37.0); MCV 81.9 fL (80.0-100.0); Mean Platelet Volume 9.7; Monocytes # (A) 0.5 k/uL (0-1.0); Monocytes % (A) 7 %; Neutrophils # (A) 5.8 k/uL (1.3-7.7); Neutrophils % (A) 77 %; Platelet Count 195 k/uL (150-450); RBC 3.26 m/uL (3.80-5.40); RDW 15.2 % (11.5-15.5); WBC 7.6 k/uL (3.8-10.6)
--- NOTE | 2018-09-03 10:16 | P.PN ---
Progress Note - Text Progress Note Date: 09/03/18 Pt is pod #1 s/p c/s under spinal anesthesia with duramorph. Pt has a Vas score of 4-5 when walking. no nausea or pruritis.
[2018-09-03] MEDS: IRON AG/C/B12/CA/SUC.ACID/STOM 1 EACH TAB PO SCH (15:20)
--- NOTE | 2018-09-04 06:48 | P.PNOBGPC ---
Subjective - Subjective Patient reports: Reports appetite normal, Reports voiding normally, Reports pain well controlled, Reports ambulating normally : doing well Objective - Vital Signs Latest vital signs: Vital Signs Temp Pulse Resp BP Pulse Ox 09/04/18 00:00 98 F 83 16 116/76 97 09/03/18 16:00 98.3 F 92 18 129/76 96 09/03/18 08:00 98.5 F 76 18 121/72 96 Intake and Output 09/03/18 09/03/18 09/04/18 14:59 22:59 06:59 Output Total 600 Balance -600 Output: Urine 600 Other: # Voids 1 1 - Exam Lungs: bilateral: normal Chest: Normal S1, Normal S2 Extremities: Present: normal Abdomen: Present: normal appearance, soft. Absent: distention, tenderness Incision: Present: normal, dry, intact Uterus: Present: normal, firm - Labs Labs: Abnormal Lab Results - Last 24 Hours (Table) 09/03/18 Range/Units 08:31 RBC 3.26 L (3.80-5.40) m/uL Hgb 8.4 L (11.4-16.0) gm/dL Hct 26.7 L (34.0-46.0) % Assessment and Plan Assessment: Post operative day #2. Patient is resting without complaints wishes to go home. Vital signs are stable she is afebrile. Uterus is firm nontender and she is having normal lochia. CBC was normal, known chronic anemia. My impression this is a normal postoperative course. Plan will be to discharge home later today and follow up with me in 1 week of note her hemoglobin A1c was mildly elevated at 6.1 and I recommended repeating that 3 months each we will take care of at her check. (1) 39 weeks gestation of Current Visit: No Status: Acute Code(s): Z3A.39 - 39 WEEKS GESTATION OF SNOMED Code(s): 57931737 (2) Previous delivery affecting Current Visit: No Status: Acute Code(s): O34.219 - MATERNAL CARE FOR UNSP TYPE SCAR FROM PREVIOUS DEL SNOMED Code(s): 976297159 (3) Family planning Current Visit: No Status: Acute Code(s): Z30.09 - ENCOUNTER FOR OTH GENERAL CNSL AND ADVICE ON CONTRACEPTION SNOMED Code(s): 842686134 (4) Gestational diabetes mellitus (GDM) requiring insulin Current Visit: No Status: Acute Code(s): O24.414 - GESTATIONAL DIABETES IN , INSULIN CONTROLLED SNOMED Code(s): 01487922
--- NOTE | 2018-09-04 06:50 | P.DS ---
Providers Date of admission: 09/02/18 05:42 Expected date of discharge: 09/04/18 Attending physician: Kobe St Primary care physician: Stated None - Discharge Diagnosis(es) (1) 39 weeks gestation of Current Visit: No Status: Acute (2) Previous delivery affecting Current Visit: No Status: Acute (3) Family planning Current Visit: No Status: Acute (4) Gestational diabetes mellitus (GDM) requiring insulin Current Visit: No Status: Acute Hospital Course: Please see dictated H&P for intimate details of this patient's admission. Brief summary this is a pleasant 32-year-old admitted to labor and delivery at 39-1/2 weeks gestation for elective repeat section. Patient undergoes above- named surgery and also a tubal ligation. Postoperative patient does well and on postoperative day #2 was felt be stable for discharge home follow up with me in 1 week. Of note she does have some chronic anemia and also her hemoglobin A1c was mildly elevated on admission at 6.1. She'll see me in a week after discharge for an incision check also arrange to repeat her hemoglobin and hemoglobin A1c. Procedures: Repeat low transverse section and bilateral partial salpingectomy Patient Condition at Discharge: Good Plan - Discharge Summary Discharge Rx Participant: No New Discharge Prescriptions: New Ibuprofen [Motrin] 600 mg PO Q6HR PRN #40 tab PRN Reason: Mild Pain Or Fever >= 100.5 Acetaminophen-Codeine 300-30mg [Tylenol w/codeine #3] 2 each PO Q4HR PRN #36 tab PRN Reason: Pain No Action Cnx-Vlfy-Tlxph Acid [-U Capsule (formulary)] 1 cap PO HS Insulin Lispro [Admelog] 12 unit SQ AC-BRKFST Insulin Glargine,Hum.rec.anlog [Basaglar Kwikpen U-100] 25 unit SQ HS Insulin Lispro [Admelog] 5 unit SQ AC-LUNCH Insulin Lispro [Admelog] 12 unit SQ AC-SUPPER Discharge Medication List Niw-Icgg-Bwgvq Acid [-U Capsule (formulary)] 1 cap PO HS 12/31/16 [History] Insulin Glargine,Hum.rec.anlog [Basaglar Kwikpen U-100] 25 unit SQ HS 09/01/18 [History] Insulin Lispro [Admelog] 5 unit SQ AC-LUNCH 09/01/18 [History] Insulin Lispro [Admelog] 12 unit SQ AC-BRKFST 09/01/18 [History] Insulin Lispro [Admelog] 12 unit SQ AC-SUPPER 09/01/18 [History] Acetaminophen-Codeine 300-30mg [Tylenol w/codeine #3] 2 each PO Q4HR PRN #36 tab 09/04/18 [Rx] Ibuprofen [Motrin] 600 mg PO Q6HR PRN #40 tab 09/04/18 [Rx] Follow up Appointment(s)/Referral(s): Kobe St MD [STAFF PHYSICIAN] - 09/11/18 8:45 am (Please also see me for a visit on October 14 at 9:45 AM.) Patient Instructions/Handouts: (DC) Activity/Diet/Wound Care/Special Instructions: No strenuous activities or heavy lifting for 6 weeks. Please call if any fever, chills, excessive vaginal bleeding, and/or abdominal pain. Discharge Disposition: HOME SELF-CARE
[2018-09-04] MEDS: IBUPROFEN 600 MG TAB PO PRN (08:30)
[2018-09-04] MEDS: IRON AG/C/B12/CA/SUC.ACID/STOM 1 EACH TAB PO SCH (08:31)
[2018-09-04] MEDS: SENNOSIDES-DOCUSATE SODIUM 1 EACH TAB PO SCH (08:35)
[2018-09-04 09:35] VITALS: BP 131/79; PULSE 76; RESP 18; TEMP 98.1
== END 2018-09-04 10:55 | disposition home or self-care (01) | DRG 785 ==
LOC: 4FBP 05:42
PROVIDERS: ADMIT Obstetrics & Gynecology; ATTEND Obstetrics & Gynecology
PROC: 0UB70ZZ Excision of Bilateral Fallopian Tubes, Open Approach (ICD-10-PCS; 2018-09-02)
PROC: 10D00Z1 Extraction of Products of Conception, Low, Open Approach (ICD-10-PCS; principal; 2018-09-02 08:00)
DX: O34.211 Maternal care for low transverse scar from previous cesarean delivery (principal); O24.424 Gestational diabetes mellitus in childbirth, insulin controlled; O69.81X0 Labor and delivery complicated by cord around neck, without compression, not applicable or unspecified; O99.02 Anemia complicating childbirth; O99.334 Smoking (tobacco) complicating childbirth; D64.9 Anemia, unspecified; F17.200 Nicotine dependence, unspecified, uncomplicated; Z30.2 Encounter for sterilization; Z37.0 Single live birth; Z3A.39 39 weeks gestation of pregnancy; Z90.49 Acquired absence of other specified parts of digestive tract; Z79.4 Long term (current) use of insulin; Z88.1 Allergy status to other antibiotic agents; Z88.5 Allergy status to narcotic agent; Z88.2 Allergy status to sulfonamides
CPT/HCPCS: 83036; 85025; 86850; 86870; 86880; 86900; 86901; 86902; 88302; 88307

== ENCOUNTER 2018-12-31 13:03 | Emergency (ER) | payer OTHER ==
[2018-12-31 13:20] VITALS: TEMP 98.3
--- NOTE | 2018-12-31 13:59 | ED ---
Back Pain HPI - General Chief Complaint: Back Pain/Injury Stated Complaint: Lower back pain, feet swelling Time Seen by Provider: 12/31/18 13:42 Source: patient, old records reviewed Limitations: no limitations - History of Present Illness Initial Comments: 33-year-old female presents emergency Department chief complaint low back pain. Patient states she's had worsening pain last few years. Patient states this point where she cannot tolerate at this time. She believes is from having to spinal's for delivery of her children. Patient denies any bowel bladder incontinence or retention. She states that she has pain is rating down her legs. Patient states it makes it feel like her feet are swelling been no extra swelling. No discoloration. Patient has no complaints abdominal pain no flank pain. Patient states pain is better at rest worse with movement. She has not taken any recent medication for the symptoms. Patient denies any fevers chills - Related Data Home Medications Medication Instructions Recorded Confirmed Bvp-Owgk-Abwla Acid 1 cap PO HS 12/31/16 09/02/18 [-U Capsule (formulary)] Insulin Glargine,Hum.rec.anlog 25 unit SQ HS 09/01/18 09/02/18 [Basaglar Kwikpen U-100] Insulin Lispro [Admelog] 5 unit SQ AC-LUNCH 09/01/18 09/02/18 Insulin Lispro [Admelog] 12 unit SQ AC-BRKFST 09/01/18 09/02/18 Insulin Lispro [Admelog] 12 unit SQ AC-SUPPER 09/01/18 09/02/18 Previous Rx's Medication Instructions Recorded Acetaminophen-Codeine 300-30mg 2 each PO Q4HR PRN #36 tab 09/04/18 [Tylenol w/codeine #3] Ibuprofen [Motrin] 600 mg PO Q6HR PRN #40 tab 09/04/18 Cyclobenzaprine [Flexeril] 10 mg PO TID PRN #15 tab 12/31/18 predniSONE 50 mg PO DAILY #5 tab 12/31/18 Allergies Allergy/AdvReac Type Severity Reaction Status Date / Time sulfamethoxazole Allergy Rash/Hives Verified 12/31/18 13:19 [From Bactrim] trimethoprim [From Bactrim] Allergy Rash/Hives Verified 12/31/18 13:19 codeine AdvReac Rapid Verified 12/31/18 13:19 Heart Rate hydrocodone bitartrate AdvReac Rapid Verified 12/31/18 13:19 [From Vicodin] Heart Rate tramadol AdvReac Rapid Verified 12/31/18 13:19 Heart Rate Review of Systems ROS Statement: Those systems with pertinent positive or pertinent negative responses have been documented in the HPI. ROS Other: All systems not noted in ROS Statement are negative. Past Medical History Past Medical History: No Reported History Additional Past Medical History / Comment(s): gestational diabetes History of Any Multi-Drug Resistant Organisms: None Reported Past Surgical History: Appendectomy, Section, Tubal Ligation Additional Past Surgical History / Comment(s): D&C, and wisdom tooth extraction Past Anesthesia/Blood Transfusion Reactions: Motion Sickness, Postoperative Nausea & Vomiting (PONV) Additional Past Anesthesia/Blood Transfusion Reaction / Comment(s): no hx blood transfusion Past Psychological History: No Psychological Hx Reported Smoking Status: Former smoker Past Alcohol Use History: Rare Past Drug Use History: None Reported - Past Family History Mother Family Medical History: No Reported History General Exam Limitations: no limitations General appearance: alert, in no apparent distress Head exam: Present: atraumatic, normocephalic, normal inspection Neck exam: Present: full ROM Respiratory exam: Present: normal lung sounds bilaterally. Absent: respiratory distress, wheezes, rales, rhonchi, stridor Cardiovascular Exam: Present: regular rate, normal rhythm, normal heart sounds. Absent: systolic murmur, diastolic murmur, rubs, gallop, clicks GI/Abdominal exam: Present: soft, normal bowel sounds. Absent: distended, tenderness, guarding, rebound, rigid Extremities exam: Present: other (Lower extremity strength equal bilaterally, neurovascular intact with equal pedal pulses, equal color equal warmth to touch) Back exam: Present: normal inspection, full ROM, tenderness (Left paraspinal lumbar), paraspinal tenderness, other (Pain with left straight leg raise). Absent: vertebral tenderness Neurological exam: Present: alert, oriented X3, CN II-XII intact, reflexes normal. Absent: motor sensory deficit Skin exam: Present: warm, dry, intact, normal color. Absent: rash Course Vital Signs 12/31/18 13:16 Temperature 98.3 F Pulse Rate 78 Respiratory 18 Rate Blood Pressure 117/83 O2 Sat by Pulse 98 Oximetry Medical Decision Making - Medical Decision Making 33-year-old female presented for low back pain. Patient has x-ray evidence of possible sacroiliitis. Patient symptoms are slightly consistent with this will be given prednisone, muscle accident nighttime. Patient will follow-up with Dr. Hilliard for possible injections. Return parameters were discussed. Disposition Clinical Impression: Sacroiliitis, Strain of lumbar region Disposition: HOME SELF-CARE Condition: Stable Instructions (If sedation given, give patient instructions): Sacroiliitis (ED), Lower Back Exercises (ED) Additional Instructions: Please return to the Emergency Department if symptoms worsen or any other concerns. Prescriptions: Cyclobenzaprine [Flexeril] 10 mg PO TID PRN #15 tab PRN Reason: Muscle Spasm predniSONE 50 mg PO DAILY #5 tab Is patient prescribed a controlled substance at d/c from ED?: No Referrals: None,Stated [Primary Care Provider] - 1-2 days Sherman Torres DO [Doctor of Osteopathic Medicine] - 1-2 days Time of Disposition: 15:13
--- NOTE | 2018-12-31 14:51 | XR ---
EXAM TYPE: LUMBAR SPINE X RAY SERIES COMPARISON: NONE HISTORY: Pain TECHNIQUE: 4 views are submitted. FINDINGS: Alignment is anatomic. The pedicles are intact. The transverse processes are intact. There is no s pondylolysis or spondylolisthesis. Sclerosis involving the SI joints bilaterally. IMPRESSION: 1. Bilateral sacroiliitis.
[2018-12-31 15:35] VITALS: BP 120/83; PULSE 74; RESP 16
== END 2018-12-31 15:40 | disposition home or self-care (01) ==
LOC: EC 13:03
DX: S39.012A Strain of muscle, fascia and tendon of lower back, initial encounter (principal); M46.1 Sacroiliitis, not elsewhere classified; M79.89 Other specified soft tissue disorders; Z79.4 Long term (current) use of insulin; Z88.5 Allergy status to narcotic agent; Z88.2 Allergy status to sulfonamides; Z87.891 Personal history of nicotine dependence
CPT/HCPCS: 72110; 99283

== ENCOUNTER 2019-08-29 16:20 | Emergency (ER) | payer OTHER ==
[2019-08-29] MEDS ORDERED: FLUORESCEIN STRIPS 1 MG STRIP BOTH EYES ONE (16:26)
--- NOTE | 2019-08-29 16:42 | ED ---
Eye Problem HPI - General Chief complaint: Eye Problems Stated complaint: Eye Problems Time Seen by Provider: 08/29/19 16:26 Source: patient Mode of arrival: ambulatory Limitations: no limitations - History of Present Illness Initial comments: 33-year-old female presenting today for chief complaint of left eye itching and redness. Patient states that for the past day her left eye is been itching. She states is now red. Patient denies a vision loss. Patient denies any headache fevers she denies any STD concern. Patient denies any drainage she sta flora it is watering patient denies any history of glaucoma she denies any feeling or visual loss or changes. Patient denies any other people in household with same symptoms but does not that her son has a cold/cough. Patient denies any other complaints. Patient wears glasses. Visual acuity 20/20 OD, OS, OU with corrective lenses. - Related Data Home Medications Medication Instructions Recorded Confirmed Mvo-Limo-Yduru Acid 1 cap PO HS 12/31/16 09/02/18 [-U Capsule (formulary)] Insulin Glargine,Hum.rec.anlog 25 unit SQ HS 09/01/18 09/02/18 [Basaglar Kwikpen U-100] Insulin Lispro [Admelog] 5 unit SQ AC-LUNCH 09/01/18 09/02/18 Insulin Lispro [Admelog] 12 unit SQ AC-BRKFST 09/01/18 09/02/18 Insulin Lispro [Admelog] 12 unit SQ AC-SUPPER 09/01/18 09/02/18 Previous Rx's Medication Instructions Recorded Acetaminophen-Codeine 300-30mg 2 each PO Q4HR PRN #36 tab 09/04/18 [Tylenol w/codeine #3] Ibuprofen [Motrin] 600 mg PO Q6HR PRN #40 tab 09/04/18 Cyclobenzaprine [Flexeril] 10 mg PO TID PRN #15 tab 12/31/18 predniSONE 50 mg PO DAILY #5 tab 12/31/18 Erythromycin Ophth Oint [Romycin 1 applic LEFT EYE QID 5 Days #1 08/29/19 Ophth Oint] tube Allergies Allergy/AdvReac Type Severity Reaction Status Date / Time sulfamethoxazole Allergy Rash/Hives Verified 08/29/19 16:24 [From Bactrim] trimethoprim [From Bactrim] Allergy Rash/Hives Verified 08/29/19 16:24 codeine AdvReac Rapid Verified 08/29/19 16:24 Heart Rate hydrocodone bitartrate AdvReac Rapid Verified 08/29/19 16:24 [From Vicodin] Heart Rate tramadol AdvReac Rapid Verified 08/29/19 16:24 Heart Rate Review of Systems ROS Statement: Those systems with pertinent positive or pertinent negative responses have been documented in the HPI. ROS Other: All systems not noted in ROS Statement are negative. Past Medical History Past Medical History: No Reported History Additional Past Medical History / Comment(s): gestational diabetes History of Any Multi-Drug Resistant Organisms: None Reported Past Surgical History: Appendectomy, Section, Tubal Ligation Additional Past Surgical History / Comment(s): D&C, and wisdom tooth extraction Past Anesthesia/Blood Transfusion Reactions: Motion Sickness, Postoperative Nausea & Vomiting (PONV) Additional Past Anesthesia/Blood Transfusion Reaction / Comment(s): no hx blood transfusion Past Psychological History: No Psychological Hx Reported Smoking Status: Former smoker Past Alcohol Use History: Rare Past Drug Use History: None Reported - Past Family History Mother Family Medical History: No Reported History General Exam - General Exam Comments Initial Comments: General: The patient is awake and alert, in no distress, and does not appear acutely ill. Eye: +3 mm pupils are equal, round and reactive to light, extra-ocular movements are intact. No nystagmus. There is conjunctival injection mild of the left eye, limbus sparing. Visual ojeda intact to confrontation bilaterally. 20/20 vision OD OS both eyes. Patient has no uptake of fluorescein on slit lamp examination, there is no corneal ulceration noted. no FB noted. No signs of icterus. IOP OS 12. Ears, nose, mouth and throat: There are moist mucous membranes and no oral lesions. Musculoskeletal: Normal ROM, no tenderness. Strength 5/5. Sensation intact. Pulses equal bilaterally 2+. Neurological: A&O x 3. CN II-XII intact grossly, There are no obvious motor or sensory deficits. Coordination appears grossly intact. Speech is normal. Skin: Skin is warm and dry and no rashes or lesions are noted. Psychiatric: Cooperative, appropriate mood & affect, normal judgment. Limitations: no limitations Course Vital Signs 03/07/20 03/07/20 16:23 16:51 Temperature 98.3 F 98.1 F Pulse Rate 82 81 Respiratory 20 16 Rate Blood Pressure 137/82 130/76 O2 Sat by Pulse 99 98 Oximetry Medical Decision Making - Medical Decision Making Physical examination findings consistent with conjunctivitis. Patient's ocular pressures within normal limits. No headaches. Patient's visual acuity intact and no evidence of foreign body or corneal ulcer. No corneal abrasion noted. Patient has been exposed to people with a common cold. Most likely viral however we will treat for differential diagnosis including bacterial conjunctivitis. Importance of follow-up return parameters discussed length the patient there is no evidence of complicating process such as orbital cellulitis this time. Patient was discharged appearing well agreeable to care plan and discharge. Disposition Clinical Impression: Conjunctivitis, left eye Disposition: HOME SELF-CARE Condition: Good Instructions (If sedation given, give patient instructions): Conjunctivitis (ED) Additional Instructions: Please use medication as discussed. Please follow-up with family doctor in the next 2 days. Please return to emergency room if the symptoms increase or worsen or for any other concerns. Prescriptions: Erythromycin Ophth Oint [Romycin Ophth Oint] 1 applic LEFT EYE QID 5 Days #1 tube Is patient prescribed a controlled substance at d/c from ED?: No Referrals: None,Stated [Primary Care Provider] - 1-2 days Time of Disposition: 16:42
[2019-08-29 16:52] VITALS: BP 130/76; PULSE 81; RESP 16; TEMP 98.1
== END 2019-08-29 16:51 | disposition home or self-care (01) ==
LOC: EC 16:20
DX: H10.9 Unspecified conjunctivitis (principal); Z79.4 Long term (current) use of insulin; Z88.1 Allergy status to other antibiotic agents; Z88.2 Allergy status to sulfonamides; Z88.5 Allergy status to narcotic agent; Z88.6 Allergy status to analgesic agent; Z87.891 Personal history of nicotine dependence
CPT/HCPCS: 99283

== ENCOUNTER → 2020-08-10 | Outpatient (CLI) | payer OTHER ==
--- NOTE | 2020-08-10 12:16 | MM ---
Reason for exam: clinical finding. Baseline mammogram. History: Family history of breast cancer in aunt. Physical Findings: Nurse did not find any significant physical abnormalities on exam. [facility] Diagnostic Mammo w CAD HARRIS Bilateral CC and MLO view(s) were taken. The breast tissue is heterogeneously dense. This may lower the sensitivity of mammography. There is no discrete abnormality including area of concern. These results were verbally communicated with the patient and result sheet given to the patient on 08/10/20. ASSESSMENT: Benign, BI-RAD 2 RECOMMENDATION: Routine screening mammogram of both breasts at age 42. Manage patient on a clinical basis.
== END | disposition home or self-care (01) ==
LOC: RADMAMWWP 11:02
PROVIDERS: ATTEND Obstetrics & Gynecology
DX: N64.52 Nipple discharge (principal); N64.59 Other signs and symptoms in breast
CPT/HCPCS: 77066